=== PATIENT | female | born 1950 | race Caucasian/White ===

== ENCOUNTER 2024-07-30 15:38 | Observation (INO) | payer MEDICARE ==
[~2024-07-30] VITALS: Ht 157.5 cm; Wt 63.5 kg
[2024-07-30] VITALS (22 sets, daily range): BP systolic 127–173; BP diastolic 76–118
--- NOTE | 2024-07-30 15:42 | NUR ---
PT AMBULATED TO ROOM 13 FOR EXAM
[2024-07-30] MEDS ORDERED: ONDANSETRON HCl 4 MG/2 ML SDV IV ONE (15:55)
[2024-07-30] MEDS ORDERED: ISOVUE-300 (Iopamidol) 100 ML SDV IV ONE (15:55)
[2024-07-30] MEDS ORDERED: KETOROLAC TROMETHAMINE 15 MG/ML SDV IV ONE (15:55)
[2024-07-30] MEDS ORDERED: LACTATED RINGER'S 1,000 ML IV STA (16:06)
[2024-07-30] MEDS ORDERED: MORPHINE SULFATE 4 MG/ML VIAL IV STA (16:06)
[2024-07-30] MEDS ORDERED: FAMOTIDINE 10MG/ML 2ML SDV IV ONE (16:10)
[2024-07-30 16:13] LABS: BASO% 0.3 % (0-3); EOS% 0.5 % (0-8); HEMATOCRIT 48.6 % (37.0-47.0); HEMOGLOBIN 16.3 g/dl (12.0-16.0); IMMATURE GRANULOCYTES 0.2 % (0.0-5.0); LYMPH% 44.1 % (15-41); MEAN CELL VOLUME 90.5 fL CALC (80.0-100.0); MEAN CORPUSCULAR HGB 30.4 pG CALC (26.0-32.0); MEAN CORPUSCULAR HGB CONC 33.5 g/dL CAL (32.0-36.0); MONO% 6.2 % (2-13); NEUT# 9.08 thou/uL (2.00-7.15); NEUT% 48.7 % (42-76); RED BLOOD COUNT 5.37 mill/uL (4.20-5.60); RED CELL DISTRI WIDTH 12.6 % (11.5-15.5)
[2024-07-30 16:26] LABS: ALBUMIN 4.7 g/dL (3.2-5.0); BILIRUBIN, TOTAL 0.5 mg/dL (0.02-1.3); POTASSIUM 3.8 mmol/l (3.5-5.1); TOTAL PROTEIN 7.8 g/dL (6.3-8.2)
--- NOTE | 2024-07-30 17:23 | NUR ---
PATIENT RETURNED FROM CT
--- NOTE | 2024-07-30 17:30 | NUR ---
PATIENT RETURNS FROM CT VOMITING
[2024-07-30 17:32] LABS: URINE BILIRUBIN - DIPSTICK Negative (NEGATIVE); URINE BLOOD DIPSTICK Moderate (NEGATIVE); URINE GLUCOSE - DIPSTICK Negative (NEGATIVE); URINE KETONE 15 mg/dL (NEGATIVE); URINE LEUK ESTERASE Trace (NEGATIVE); URINE NITRITE - DIPSTICK Negative (Negative); URINE PROTEIN - DIPSTICK 30 mg/dL (NEG-TRACE); URINE UROBILINOGEN - DIPSTICK 0.2 E.U./dL (0.2)
[2024-07-30 17:33] LABS: URINE COLOR Yellow
[2024-07-30] MEDS ORDERED: PROMETHAZINE HCL 25 MG/ML AMP IV STA (17:34)
[2024-07-30 17:45] LABS: URINE SQUAMOUS EPITHELIAL CELL FEW EPI/hpf (0-FEW)
[2024-07-30] MEDS ORDERED: MORPHINE SULFATE 4 MG/ML VIAL IV ONE (17:45)
--- NOTE | 2024-07-30 17:45 | NUR ---
PATIENT MEDICATED FOR VOMITING
[2024-07-30 17:47] LABS: URINE BACTERIA FEW hpf; URINE HYALINE CAST MODERATE lpf (NONE-RARE)
[2024-07-30] MEDS ORDERED: CARAFATE1 GM PO (18:49)
[2024-07-30] MEDS ORDERED: AMITRIPTYLINE H75 M1 PO (18:50)
[2024-07-30] MEDS ORDERED: HYOSCYAMINE0.125 MG (18:50)
[2024-07-30] MEDS ORDERED: VALACYCLOVIR HCL1 GM PO (18:51)
[2024-07-30] MEDS ORDERED: FAMOTIDINE40 M1 PO (18:51)
[2024-07-30] MEDS ORDERED: METOCLOPRAMIDE H5 MG PO (18:53)
--- NOTE | 2024-07-30 19:16 | NUR ---
TRANSITION OF CARE BEDSIDE REPORT TO NATALIE MADERA
--- NOTE | 2024-07-30 20:00 | NUR ---
PATIENT UPDATED ON PLAN OF CARE. AT BEDSIDE.
[2024-07-30] MEDS ORDERED: HYDROcodone 5 MG/Acetaminophen 325 MG/COMBO PO PRN (20:20)
[2024-07-30] MEDS ORDERED: SODIUM CHLORIDE 0.9% 1,000 ML IV PRN (20:20)
[2024-07-30] MEDS ORDERED: ACETAMINOPHEN 325 MG/TAB PO PRN (20:20)
[2024-07-30] MEDS ORDERED: MORPHINE SULFATE 4 MG/ML VIAL IV PRN (20:20)
[2024-07-30] MEDS ORDERED: MAGNESIUM HYDROXIDE 30 ML UDC PO PRN (20:20)
[2024-07-30] MEDS ORDERED: ENOXAPARIN SODIUM 40 MG/0.4 ML SYR SC SCH (21:00)
[2024-07-30] MEDS ORDERED: AMITRIPTYLINE HCL 25 MG TAB PO SCH (21:00)
--- NOTE | 2024-07-30 21:56 | NUR ---
REPORT GIVEN TO Kit FAIRBANKS RN.
--- NOTE | 2024-07-30 22:22 | NUR ---
PT ARRIVED TO [facility] VIA WHEELCHAIR NO DISTRESS NOTED ON ASSESSMENT. 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 PT STATED HAVING PAIN 5/10 PT RECEIVED PAIN MEDICATION PRIOR TO ARRIVAL. SKIN INTACT NO EDEMA NOTED. IV FLUSHED WORKING PROPERLY. CALL LIGHT WITHIN REACH. PLAN OF CARE ONGOING.
--- NOTE | 2024-07-30 22:30 | NUR ---
RPATIENT TRASNPORTED TO MED SURG ROOM 277. CARE HANDED OVER TO Kit FAIRBANKS RN
[2024-07-30] MEDS ORDERED: ONDANSETRON HCl 4 MG/2 ML SDV IV PRN (23:25)
--- NOTE | 2024-07-31 | NUR ---
PT STATED PAIN LEVEL AT THIS TIME IS 2/10.
--- NOTE | 2024-07-31 04:00 | NUR ---
PT SLEEPING NO DISTRESS NOTED ON EXAM. CALL LIGHT WITHIN REACH. PLAN OF CARE ONGOING.
[2024-07-31 04:29] VITALS: BP 151/89
[2024-07-31 07:00] VITALS: BP 152/103
--- NOTE | 2024-07-31 08:45 | NUR ---
EPORT TAKEN FROM VALENTINA MADERA AT THIS TIME. PT IS IN ROOM WITH AT BEDSIDE. PT IS A BIT ANXIOUS THIS MORNING AND IN PAIN PROVIDER IS AWARE AND IS PUTTING IN MEDICATION FOR PT. PT VITALS ARE STABLE. PT HAS CALL LIGHT IN REACH AND EDUCATED ON MEDICATIONS BEING PESCRIBED.
[2024-07-31] MEDS ORDERED: oxyCODONE HCL 5 MG/TAB PO PRN (09:55)
[2024-07-31] MEDS ORDERED: HYDROmorphone HCL 2 MG/AMP IV PRN (09:55)
[2024-07-31] MEDS ORDERED: Polyethylene Glycol 3350 17 GM/PKT PO PRN (09:55)
[2024-07-31] MEDS ORDERED: PANTOPRAZOLE SODIUM Sesquihydr 40 MG/TAB PO SCH (10:30)
[2024-07-31] MEDS ORDERED: LORazepam 2 MG/ML IV SCH (10:30)
[2024-07-31] MEDS ORDERED: ALUM & MAG HYDROX-SIMETHICONE 30 ML PO SCH (11:00)
[2024-07-31] MEDS ORDERED: ALPRAZolam 0.25 MG PO SCH (11:00)
[2024-07-31] MEDS ORDERED: LIDOCAINE VISCOUS 2% 15 ML UDC PO SCH (11:00)
[2024-07-31 11:41] VITALS: BP 145/84
[2024-07-31 14:55] VITALS: BP 133/86
--- NOTE | 2024-07-31 16:29 | NUR ---
pt is in room resting medication has helped pt to relax. pt did vomit after recieving pain medication but zofran was given and pt is feeling better. pt has no needs right now. pt has call light in reach
--- NOTE | 2024-07-31 16:30 | NUR ---
pt is sleeping in room. equal rise and fall of chest iv fluids going. pt has no needs at this time call light is in reach of pt
[2024-07-31 19:30] VITALS: BP 157/89
[2024-07-31] MEDS ORDERED: ALPRAZolam 0.25 MG PO PRN (23:20)
[2024-08-01 04:17] VITALS: BP 142/84
[2024-08-01 06:08] LABS: BASO% 0.7 % (0-3); IMMATURE GRANULOCYTES 0.2 % (0.0-5.0); LYMPH% 46.7 % (15-41); MEAN CELL VOLUME 95.1 fL CALC (80.0-100.0); MEAN CORPUSCULAR HGB 31.1 pG CALC (26.0-32.0); MEAN CORPUSCULAR HGB CONC 32.8 g/dL CAL (32.0-36.0); MONO% 7.6 % (2-13); NEUT# 5.39 thou/uL (2.00-7.15); NEUT% 43.8 % (42-76); RED BLOOD COUNT 4.27 mill/uL (4.20-5.60); RED CELL DISTRI WIDTH 13.1 % (11.5-15.5)
[2024-08-01 06:14] LABS: BILIRUBIN, TOTAL 0.4 mg/dL (0.02-1.3); CREATININE 0.8 mg/dL (0.5-1.0); MAGNESIUM 1.6 mg/dL (1.6-2.3); POTASSIUM 3.5 mmol/l (3.5-5.1)
[2024-08-01 06:18] LABS: HEMATOCRIT 40.6 % (37.0-47.0); HEMOGLOBIN 13.3 g/dl (12.0-16.0)
[2024-08-01 06:21] LABS: ALBUMIN 3.1 g/dL (3.2-5.0); TOTAL PROTEIN 5.4 g/dL (6.3-8.2)
--- NOTE | 2024-08-01 06:41 | NUR ---
patient in bed with eyes closed with no s/s of distress noted. respiration even and non-labored. Denies pain and discomfort. Complained of nausea and vomited X 2. Zofran was gven as ordered and effective. Pt complined of anxiety during the night and requested to have Xanax. Md was called and new orders noted.
--- NOTE | 2024-08-01 06:57 | NUR ---
PATIENT LAYING IN BED ALERT X4 . NO C/O PAIN NS RUNNING AT 100ML/HR . OR N/D WAS GIVEN ZOFRAN.
[2024-08-01 07:07] VITALS: BP 135/81
[2024-08-01] MEDS ORDERED: BISACODYL 10 MG SUPP RE PRN (10:00)
--- NOTE | 2024-08-01 11:50 | NUR ---
PATIENT LAYING IN BED. PATIENT DENIES ANY NEEDS AT THIS TIME.
[2024-08-01 14:28] VITALS: BP 139/82
--- NOTE | 2024-08-01 15:51 | NUR ---
PATIENT LAYING IN BED. PATIENT DENIES ANY NEEDS AT THIS TIME.
[2024-08-01 18:23] VITALS: BP 121/79
[2024-08-01 18:28] VITALS: BP 121/79
[2024-08-02 06:36] LABS: BASO% 0.5 % (0-3); EOS% 0.6 % (0-8); HEMATOCRIT 42.7 % (37.0-47.0); HEMOGLOBIN 13.6 g/dl (12.0-16.0); IMMATURE GRANULOCYTES 0.4 % (0.0-5.0); LYMPH% 31.3 % (15-41); MEAN CELL VOLUME 96.4 fL CALC (80.0-100.0); MEAN CORPUSCULAR HGB 30.7 pG CALC (26.0-32.0); MEAN CORPUSCULAR HGB CONC 31.9 g/dL CAL (32.0-36.0); NEUT# 6.91 thou/uL (2.00-7.15); NEUT% 58.2 % (42-76); RED BLOOD COUNT 4.43 mill/uL (4.20-5.60); RED CELL DISTRI WIDTH 12.9 % (11.5-15.5)
[2024-08-02 06:52] LABS: ALBUMIN 3.4 g/dL (3.2-5.0); BILIRUBIN, TOTAL 0.5 mg/dL (0.02-1.3); CREATININE 0.7 mg/dL (0.5-1.0); POTASSIUM 3.5 mmol/l (3.5-5.1); TOTAL PROTEIN 5.7 g/dL (6.3-8.2)
[2024-08-02 07:25] VITALS: BP 134/77
--- NOTE | 2024-08-02 07:39 | NUR ---
PATIENT LAYING IN BED RESTING . HAS SOME C/O DISCOMFORT IN THE ABD. NO N/V NOTED. IV INTACT
[2024-08-02 08:16] VITALS: BP 134/77
--- NOTE | 2024-08-02 11:58 | NUR ---
PATIENT LAYING IN BED. PATIENT DENIES ANY NEEDS AT THIS TIME.
[2024-08-02 14:53] VITALS: BP 145/79
--- NOTE | 2024-08-02 16:00 | NUR ---
PATIENT LAYING IN BED. SPOUSE AT BEDSIDE. PATIENT DENIES ANY NEEDS AT THIS TIME.
[2024-08-02] MEDS ORDERED: PROMETHAZINE HCL 25 MG/ML AMP IM SCH (17:40)
[2024-08-02 18:45] VITALS: BP 149/85
[2024-08-02] MEDS ORDERED: CIPROFLOXACIN HCL 500 MG/TAB PO SCH (21:02)
[2024-08-02] MEDS ORDERED: metroNIDAZOLE 500 MG/TAB PO SCH (22:00)
--- NOTE | 2024-08-03 00:13 | NUR ---
RESTING QUIETLY EYES CLOSED. NO DISTRESS NOTED AT THIS TIME. CALL LIGHT WITHIN REACH.
[2024-08-03 05:18] VITALS: BP 146/94
[2024-08-03 05:57] LABS: ALBUMIN 3.4 g/dL (3.2-5.0); BASO% 0.5 % (0-3); BILIRUBIN, TOTAL 0.6 mg/dL (0.02-1.3); CREATININE 0.6 mg/dL (0.5-1.0); HEMATOCRIT 44.6 % (37.0-47.0); HEMOGLOBIN 14.5 g/dl (12.0-16.0); IMMATURE GRANULOCYTES 0.5 % (0.0-5.0); LYMPH% 33.7 % (15-41); MEAN CELL VOLUME 95.3 fL CALC (80.0-100.0); MEAN CORPUSCULAR HGB CONC 32.5 g/dL CAL (32.0-36.0); NEUT# 6.4 thou/uL (2.00-7.15); NEUT% 56.3 % (42-76); POTASSIUM 3.3 mmol/l (3.5-5.1); RED BLOOD COUNT 4.68 mill/uL (4.20-5.60); RED CELL DISTRI WIDTH 12.8 % (11.5-15.5); TOTAL PROTEIN 5.8 g/dL (6.3-8.2)
[2024-08-03] MEDS ORDERED: PROMETHAZINE HCL 25 MG/TAB PO SCH (06:45)
[2024-08-03 06:49] VITALS: BP 153/98
--- NOTE | 2024-08-03 08:45 | NUR ---
PT IS FOUND RESTING COMFORTABLY IN BED. PT IS A&O X4, STABLE AND NO COMPLAINTS OF PAIN. LUNG SOUNDS ARE CLEAR. PT IS ABLE TO MOVE ALL EXTREMITIES. PT IS ABLE TO MAKE HER NEEDS KNOWN. PLAN OF CARE WAS REVIEWED WITH THE PATIENT AND SHE STATES NO FURTHER QUESTIONS AT THIS TIME. ALL NATIONAL PT SAFETY PRECAUTIONS ARE IN PLACE.
[2024-08-03] MEDS ORDERED: TRAZODONE100 MG PO (09:16)
[2024-08-03] MEDS ORDERED: LOVASTATIN20 M1 PO (09:16)
[2024-08-03] MEDS ORDERED: COZAAR50 MG PO (09:17)
[2024-08-03] MEDS ORDERED: HYDROCHLOROT25 MG PO (09:17)
[2024-08-03] MEDS ORDERED: HYOSCYAMINE0.125 MG PO (09:18)
[2024-08-03] MEDS ORDERED: ESOMEPRAZOLE MA40 MG PO (09:18)
[2024-08-03 09:25] LABS: AMYLASE 118 u/l (30-110); LIPASE 127 u/l (23-300)
[2024-08-03] MEDS ORDERED: LOSARTAN Potassium 50 MG/TAB PO SCH (10:30)
[2024-08-03] MEDS ORDERED: FAMOTIDINE 20 MG/TAB PO SCH (10:30)
[2024-08-03] MEDS ORDERED: PROMETHAZINE HCL 25 MG/TAB PO PRN (10:35)
--- NOTE | 2024-08-03 12:45 | NUR ---
PT'S CONDITION REMAINS UNCHANGED. ALL NATIONAL PT SAFETY PRECAUTIONS IN PLACE.
[2024-08-03 14:52] VITALS: BP 137/84
[2024-08-03 18:28] VITALS: BP 154/87
[2024-08-03 18:30] VITALS: BP 154/87
--- NOTE | 2024-08-03 20:45 | NUR ---
PT RESTING NO DISTRESS NOTED ON ASSESSMENT. PT REPORTS NO PAIN AT THIS TIME. PICC LINE WORKING PROPERLY WITH IV FLUIDS ONGOING. CALL LIGHT WITHIN REACH. PLAN OF CARE ONGOING.
[2024-08-03] MEDS ORDERED: valACYclovir 500 MG TAB PO SCH (21:00)
[2024-08-03] MEDS ORDERED: traZODone HCL 50 MG/TAB PO SCH (21:00)
--- NOTE | 2024-08-04 00:09 | NUR ---
PT SLEEPING NO DISTRESS NOTED ON EXAM. IV FLUID INFUSION ONGOING WORKING PROPERLY. CALL LIGHT WITHIN REACH. PLAN OF CARE ONGOING.
[2024-08-04 04:00] VITALS: BP 111/58
--- NOTE | 2024-08-04 04:18 | NUR ---
PT SLEEPING EASILY AROUSABLE. IV FLUID INFUSION ONGOING WORKING PROPERLY. CALL LIGHT WITHIN REACH. PLAN OF CARE ONGOING.
[2024-08-04 05:17] LABS: BASO% 0.6 % (0-3); EOS% 1.8 % (0-8); HEMOGLOBIN 12.7 g/dl (12.0-16.0); IMMATURE GRANULOCYTES 0.4 % (0.0-5.0); LYMPH% 42.5 % (15-41); MEAN CELL VOLUME 94.8 fL CALC (80.0-100.0); MEAN CORPUSCULAR HGB 31.6 pG CALC (26.0-32.0); MEAN CORPUSCULAR HGB CONC 33.3 g/dL CAL (32.0-36.0); MONO% 7.2 % (2-13); NEUT# 5.18 thou/uL (2.00-7.15); NEUT% 47.5 % (42-76); RED BLOOD COUNT 4.02 mill/uL (4.20-5.60)
[2024-08-04 05:23] LABS: HEMATOCRIT 38.1 % (37.0-47.0)
[2024-08-04 05:24] LABS: BILIRUBIN, TOTAL 0.4 mg/dL (0.02-1.3); CREATININE 0.7 mg/dL (0.5-1.0); MAGNESIUM 1.7 mg/dL (1.6-2.3); POTASSIUM 3.1 mmol/l (3.5-5.1); TOTAL PROTEIN 4.9 g/dL (6.3-8.2)
[2024-08-04 05:26] LABS: ALBUMIN 2.7 g/dL (3.2-5.0)
[2024-08-04 07:14] VITALS: BP 123/66
--- NOTE | 2024-08-04 07:16 | NUR ---
PT WAS FOUND RESTING COMFORTABLY IN BED. PT IS A&O X4 AND STABLE. PT CAN MOVE ALL EXTREMITES. PT HAS NO COMPLAINTS OF PAIN. PT CAN MAKE HER NEEDS KNOWN. PLAN OF CARE WAS REVIEWED; NO FURTHER QUESTIONS AT THIS TIME. ALL NATIONAL PT SAFETY PRECAUTIONS IN PLACE.
[2024-08-04] MEDS ORDERED: POTASSIUM CHLORIDE 20 MEQ/PKT POWDER PO SCH (08:00)
[2024-08-04] MEDS ORDERED: CIPROFLOXACN500 MG PO (09:06)
[2024-08-04] MEDS ORDERED: ZOFRAN4 MG/TAB PO (09:07)
[2024-08-04] MEDS ORDERED: METRONIDAZOLE500 MG PO (09:07)
== END 2024-08-04 12:12 | disposition home or self-care (01) ==
LOC: ED 15:38 → ED-I 18:00 → ED 18:29 → MS2 18:30
PROVIDERS: Internal Medicine; Nurse Practitioner; Nurse Practitioner Family; ADMIT Internal Medicine; ATTEND Internal Medicine
PROC: 02HV33Z Insertion of Infusion Device into Superior Vena Cava, Percutaneous Approach (ICD-10-PCS; principal; 2024-08-03)
PROC: B518ZZA Fluoroscopy of Superior Vena Cava, Guidance (ICD-10-PCS; 2024-08-03)
DX: K57.32 Diverticulitis of large intestine without perforation or abscess without bleeding (principal); K58.1 Irritable bowel syndrome with constipation; I10 Essential (primary) hypertension; K25.7 Chronic gastric ulcer without hemorrhage or perforation; E78.5 Hyperlipidemia, unspecified; K21.9 Gastro-esophageal reflux disease without esophagitis; E83.52 Hypercalcemia; F41.9 Anxiety disorder, unspecified
CPT/HCPCS: J0744; J1171; J1650; J1836; J1885; J2405; J2550; Q9967